=== PATIENT | female | born 1995 | race Caucasian/White ===

== ENCOUNTER 2017-03-25 22:31 | Emergency (ER) ==
[2017-03-25 22:41] VITALS: BP 105/70; TEMP 98; BMI 31.4
--- NOTE | 2017-03-25 23:04 | ED.PDOC ---
General ED Provider: Dr. GREG WHATLEY Chief Complaint: Urinary Problem Stated Complaint: pateint complains of urinary symtoms mostly burining on urination. Denies any back pain or fever. Time Seen by Physician: 22:59 Mode of Arrival: Walk-In Information Source: Patient Exam Limitations: No limitations Nursing and Triage Documentation Reviewed and Agree: Yes Review of Systems - Review Of Systems Constitutional: Reports: No symptoms Eyes: Reports: No symptoms Ears, Nose, Mouth, Throat: Reports: No symptoms Respiratory: Reports: No symptoms Cardiac: Reports: No symptoms GI: Reports: No symptoms : Reports: Dysuria Musculoskeletal: Reports: No symptoms Skin: Reports: No symptoms Neurological: Reports: Anxiety Endocrine: Reports: No symptoms Hematologic/Lymphatic: Reports: No symptoms All Other Systems: Reviewed and Negative Past Medical History - Past Medical History Endocrine: Reports: None Cardiovascular: Reports: None Respiratory: Reports: None Hematological: Reports: None Gastrointestinal: Reports: None Genitourinary: Reports: None Neuro/Psych: Reports: Anxiety, Depression, Bipolar Disorder, Other (Paranoia ) Musculoskeletal: Reports: None Cancer: Reports: None Last Menstrual Period: 2-3 WEEKS AGO - Surgical History General Surgical History: Reports: None - Family History Family History: Reports: None - Social History Smoking Status: Never smoker Hx Substance Use: No Alcohol Screening: None - Immunizations Tetanus Shot up to Date: Yes Physical Exam - Physical Exam Appearance: Well-appearing, Well-nourished Eyes: REBECCA, EOMI, Conjunctiva clear ENT: Ears normal, Nose normal, Oropharynx normal Respiratory: Airway patent, Breath sounds clear, Breath sounds equal, Respirations nonlabored Cardiovascular: RRR, Pulses normal, No rub, No murmur GI/: Soft, Nontender, No masses, Bowel sounds normal, No Organomegaly Musculoskeletal: Normal strength, ROM intact, No edema, No calf tenderness Skin: Warm, Dry, Normal color Neurological: Sensation intact, Motor intact, Cranial nerves intact, Alert, Oriented Psychiatric: Affect appropriate, Mood appropriate Critical Care Note - Critical Care Note Total Time (mins): 0 Course - Course Orders, Labs, Meds: Lab Review 03/25/17 22:50 Urine Color Yellow Urine Clarity Hazy Urine pH 7.0 Ur Specific [place] 1.010 Urine Protein Negative Urine Glucose (UA) Negative Urine Ketones Negative Urine Blood Trace-lysed Urine Nitrite Negative Urine Bilirubin Negative Urine Urobilinogen 0.2 Ur Leukocyte Esterase 2+ Urine Microscopic WBC 20-30 Ur Squamous Epith Cells 10-20 Urine Test Negative Orders Category Date Time Status URINALYSIS C & S IF INDICATED Stat LAB 03/25/17 22:50 Completed URINE CULTURE Routine LAB 03/25/17 22:50 Results URINE Stat LAB 03/25/17 22:50 Completed Acetaminophen [Tylenol] MEDS 03/25/17 23:26 Discontinued 650 mg PO ONCE STA Phenazopyridine HCl [Pyridium] MEDS 03/25/17 23:26 Discontinued 100 mg PO ONCE STA Sulfamethoxazole/Trimethoprim [Bactrim Ds 800/160 mg] MEDS 03/25/17 23:26 Discontinued 1 tab PO ONCE STA Medications Discontinued Medications Generic Name Dose Route Start Last Admin Trade Name Freq PRN Reason Stop Dose Admin Acetaminophen 650 mg 03/25/17 23:26 03/25/17 23:38 Tylenol PO 03/25/17 23:27 650 mg ONCE STA Administration Phenazopyridine HCl 100 mg 03/25/17 23:26 03/25/17 23:39 Pyridium PO 03/25/17 23:27 100 mg ONCE STA Administration Trimethoprim/Sulfamethoxazole 1 tab 03/25/17 23:26 03/25/17 23:39 Bactrim Ds 800/160 Mg PO 03/25/17 23:27 1 tab ONCE STA Administration Vital Signs: Temp Pulse Resp BP Pulse Ox 03/25/17 22:32 98 F 72 18 105/70 97 Departure - Departure Time of Disposition: 23:20 Disposition: HOME SELF-CARE Discharge Problem: Urinary tract infectious disease Instructions: Urinary Tract Infection in Women (ED) Condition: Fair Pt referred to PMD for follow-up: Yes Additional Instructions: Push fluids Take pain medications as prescribed. Follow up with your primary care provider as soon as possible. Prescriptions: Phenazopyridine HCl [Pyridium] 100 mg PO TID PRN #10 tablet PRN Reason: Urinary Burning. Sulfamethoxazole/Trimethoprim [Bactrim Ds Tablet] 1 each PO BID #10 tablet Allergies/Adverse Reactions: Allergies No Known Allergies Allergy (Verified 03/25/17 22:39) Home Medications: Ambulatory Orders Phenazopyridine HCl [Pyridium] 100 mg PO TID PRN #10 tablet 03/25/17 Sulfamethoxazole/Trimethoprim [Bactrim Ds Tablet] 1 each PO BID #10 tablet 03/25 Disposition Discussed With: Patient, Family
[2017-03-25 23:06] LABS: BILIRUBIN,URINE Negative (NEGATIVE); KETONES,URINE Negative (NEGATIVE); LEUKOCYTE ESTERASE ,URINE 2+ (NEGATIVE); NITRITE,URINE Negative (NEGATIVE); PROTEIN,URINE Negative (NEGATIVE); URINE, BLOOD Trace-lysed (NEGATIVE)
[2017-03-25 23:08] LABS: ADD URINE MICROSCOPIC YES
[2017-03-25 23:09] LABS: URINE PREGNANCY INTERNAL QC INTERNAL QC VALID
[2017-03-25] MEDS ORDERED: BACTRIM DS 800/160 MG PO STA (23:26)
[2017-03-25] MEDS ORDERED: PYRIDIUM PO STA (23:26)
[2017-03-25] MEDS ORDERED: TYLENOL PO STA (23:26)
== END 2017-03-25 23:42 | disposition home or self-care (01) ==
LOC: ED 22:31
DX: N39.0 Urinary tract infection, site not specified (principal)
CPT/HCPCS: 81001; 81025; 87086; 99282

== ENCOUNTER 2018-04-23 11:15 | Emergency (ER) ==
[2018-04-23 11:32] VITALS: BMI 31.8
[2018-04-23] MEDS ORDERED: LACTATED RINGERS 1,000 ML IV STA (11:46)
[2018-04-23] MEDS ORDERED: LEVAQUIN 500 MG in PREMIX 100 ML D5W 1 BAG IV STA (12:48)
--- NOTE | 2018-04-23 12:53 | ED.PDOC ---
General ED Provider: Dr. GREG WHATLEY Chief Complaint: Back Pain Stated Complaint: Left flank pain for 2 days with shaking chills. Time Seen by Physician: 12:51 Mode of Arrival: Walk-In Information Source: Patient Nursing and Triage Documentation Reviewed and Agree: Yes Does patient meet sepsis criteria?: Yes If yes, has appropriate treatment been initiated?: No System Inflammatory Response Syndrome: Not Applicable Sepsis Protocol: For patient's 13 years and over: Temp is 96.8 and below OR 101 and greater Pulse >90 BPM Resp >20/minute Acutely Altered Mental Status Are patient's symptoms suggestive of a new infection, such as: -Pneumonia -Skin, Soft Tissue -Endocarditis -UTI -Bone, Joint Infection -Implantable Device -Acute Abdominal Infection -Wound Infection -Meningitis -Blood Stream Catheter Infection -Unknown Complaint Exam - Complaint/Exam Patient Complains of: Reports: Pain Onset/Duration: 1 day Symptoms Are: Still present Timing: Constant Initial Severity: Moderate Current Severity: Moderate Location of Pain: Reports: Left, Flank Character: Reports: Colicky Aggravating: Reports: None Alleviating: Reports: None Associated Signs and Symptoms: Reports: Back pain, Hematuria Ectopic Risk Factors: Reports: None Ovarian Torsion Risk Factors: Reports: None Surgical Obstruction Risk Factors: Reports: None Abdominal Findings: Present: CVA Tenderness Differential Diagnoses: Renal Colic, UTI, Other (pyelonephritis ) Review of Systems - Review Of Systems Constitutional: Reports: No symptoms Eyes: Reports: No symptoms Ears, Nose, Mouth, Throat: Reports: No symptoms Respiratory: Reports: No symptoms Cardiac: Reports: No symptoms GI: Reports: No symptoms : Reports: Dysuria, Frequency, Flank pain Musculoskeletal: Reports: Back pain (Left flank ) Skin: Reports: No symptoms Neurological: Reports: No symptoms Endocrine: Reports: No symptoms Hematologic/Lymphatic: Reports: No symptoms All Other Systems: Reviewed and Negative Past Medical History - Past Medical History Endocrine: Reports: None Cardiovascular: Reports: None Respiratory: Reports: None Hematological: Reports: None Gastrointestinal: Reports: None Genitourinary: Reports: None Neuro/Psych: Reports: Anxiety, Depression, Bipolar Disorder, Other (Paranoia ) Musculoskeletal: Reports: None Cancer: Reports: None Last Menstrual Period: now - Surgical History General Surgical History: Reports: None - Family History Family History: Reports: None - Social History Smoking Status: Never smoker Hx Substance Use: No Alcohol Screening: None Physical Exam - Physical Exam Appearance: Ill-appearing, Well-nourished Ill-appearing: Moderate Pain Distress: Moderate Eyes: REBECCA, EOMI, Conjunctiva clear ENT: Ears normal, Nose normal, Oropharynx normal Neck: Supple Respiratory: Airway patent, Breath sounds clear, Breath sounds equal, Respirations nonlabored Cardiovascular: Pulses normal, No rub, No murmur, Tachycardia GI/: Soft, No masses, Bowel sounds normal, No Organomegaly, Tender (Left upper quadrand mild tenderness ) Musculoskeletal: Normal strength, ROM intact, No edema, No calf tenderness Skin: Warm, Dry, Normal color Neurological: Sensation intact, Motor intact, Cranial nerves intact, Alert, Oriented Psychiatric: Affect appropriate, Mood appropriate Critical Care Note - Critical Care Note Total Time (mins): 0 Course - Course Hematology/Chemistry: 04/23/18 11:45 04/23/18 11:45 Orders, Labs, Meds: Lab Review 04/23/18 04/23/18 04/23/18 11:45 11:45 11:45 WBC 18.90 H RBC 4.11 L Hgb 12.1 Hct 35.4 L MCV 86.1 MCH 29.4 MCHC 34.2 RDW Coeff of [place] 12.2 Plt Count 242 Immature Gran % (Auto) 0.4 Neut % (Auto) 89.0 Lymph % (Auto) 5.9 L [place] % (Auto) 3.8 Eos % (Auto) 0.7 Baso % (Auto) 0.2 Immature Gran # (Auto) 0.1 Neut # (Auto) 16.8 H Lymph # (Auto) 1.1 [place] # (Auto) 0.7 Eos # (Auto) 0.1 Baso # (Auto) 0.0 Sodium 138 Potassium 3.6 Chloride 107 Carbon Dioxide 21 Anion Gap 13.6 BUN 11 Creatinine 0.72 Estimated GFR (MDRD) 101.00 BUN/Creatinine Ratio 15.27 Glucose 102 Lactic Acid 5.7 Calcium 9.1 Total Bilirubin 1.0 AST 18 ALT 24 Alkaline Phosphatase 65 Total Protein 7.5 Albumin 3.7 Globulin 3.8 Albumin/Globulin Ratio 0.97 Procalcitonin Urine Color Urine Clarity Urine pH Ur Specific [place] Urine Protein Urine Glucose (UA) Urine Ketones Urine Blood Urine Nitrite Urine Bilirubin Urine Urobilinogen Ur Leukocyte Esterase Urine Microscopic RBC Urine Microscopic WBC Ur Squamous Epith Cells Urine Bacteria Urine Test 04/23/18 04/23/18 04/23/18 11:45 11:50 11:50 WBC RBC Hgb Hct MCV MCH MCHC RDW Coeff of [place] Plt Count Immature Gran % (Auto) Neut % (Auto) Lymph % (Auto) [place] % (Auto) Eos % (Auto) Baso % (Auto) Immature Gran # (Auto) Neut # (Auto) Lymph # (Auto) [place] # (Auto) Eos # (Auto) Baso # (Auto) Sodium Potassium Chloride Carbon Dioxide Anion Gap BUN Creatinine Estimated GFR (MDRD) BUN/Creatinine Ratio Glucose Lactic Acid Calcium Total Bilirubin AST ALT Alkaline Phosphatase Total Protein Albumin Globulin Albumin/Globulin Ratio Procalcitonin 0.21 Urine Color Yellow Urine Clarity Cloudy Urine pH 5.5 Ur Specific [place] 1.020 Urine Protein 2+ Urine Glucose (UA) Negative Urine Ketones Negative Urine Blood 3+ Urine Nitrite Positive Urine Bilirubin Negative Urine Urobilinogen 0.2 Ur Leukocyte Esterase 2+ Urine Microscopic RBC Tntc Urine Microscopic WBC 20-30 Ur Squamous Epith Cells 5-10 Urine Bacteria 2+ Urine Test Negative Orders Category Date Time Status ED IV/MEDIPORT/POWERPORT .ONCE EMERGENCY 04/23/18 11:44 Active BLOOD CULTURE (ED ONLY) Stat LAB 04/23/18 11:45 Results CBC W/ AUTO DIFF Stat LAB 04/23/18 11:45 Completed COMPREHENSIVE METABOLIC PANEL Stat LAB 04/23/18 11:45 Completed LACTIC ACID Stat LAB 04/23/18 11:45 Completed PROCALCITONIN Stat LAB 04/23/18 11:45 Completed URINALYSIS C & S IF INDICATED Stat LAB 04/23/18 11:50 Completed URINE CULTURE Stat LAB 04/23/18 11:50 Completed URINE Stat LAB 04/23/18 11:50 Completed 0.9 % Sodium Chloride [Saline Flush] MEDS 04/23/18 11:44 Discontinued 1 syr IVF PRN PRN Levofloxacin/D5w [Levaquin] 100 ml MEDS 04/23/18 13:23 Discontinued IV .STK-MED Levofloxacin/D5w [Levaquin] 500 mg MEDS 04/23/18 12:48 Discontinued Premix 100 ml D5w 1 bag IV ONCE Ringers Lactated Solution [Lactated Ringers] 1,000 ml MEDS 04/23/18 11:[address] ABD/PEL WO RENAL STONE PROT Stat RADS 04/23/18 12:21 Completed Medications Discontinued Medications Generic Name Dose Route Start Last Admin Trade Name Freq PRN Reason Stop Dose Admin Lactated Ringer's 1,000 mls @ 1,000 mls/hr 04/23/18 11:46 04/23/18 12:13 Lactated Ringers IV 04/23/18 12:45 1,000 mls/hr BOLUS STA Administration Levofloxacin/Dextrose 500 mg/ 100 mls @ 100 mls/hr 04/23/18 12:48 04/23/18 12 :56 Dextrose IV 04/23/18 13:47 100 mls/hr ONCE STA Administration Sodium Chloride 1 syr 04/23/18 11:44 04/23/18 12:13 Saline Flush IVF 1 syr PRN PRN Administration To flush IV Vital Signs: Temp Pulse Resp BP Pulse Ox 04/23/18 13:41 99.3 F 77 16 124/80 98 04/23/18 11:22 102.2 F H 120 H 16 109/69 95 Departure - Departure Time of Disposition: 01:30 Disposition: HOME SELF-CARE Discharge Problem: Pyelonephritis Instructions: Kidney Infection (ED), Flank Pain (ED) Condition: Stable Pt referred to PMD for follow-up: Yes IPMP verified?: No Additional Instructions: Push fluids Follow up with Your PCP in 3 days Return if worse or cannot keep the medications down. Prescriptions: Levofloxacin [Levaquin] 500 mg PO DAILY #10 tablet Allergies/Adverse Reactions: Allergies No Known Allergies Allergy (Verified 04/23/18 11:26) Home Medications: Ambulatory Orders Levofloxacin [Levaquin] 500 mg PO DAILY #10 tablet 04/23/18 Disposition Discussed With: Patient, Family
--- NOTE | 2018-04-23 13:03 | CT ---
EXAM: CT scan of the abdomen and pelvis without contrast HISTORY: ATT TECHNIQUE: Helical imaging of the abdomen pelvis was performed without contrast. 3 mm thin axial im ages and coronal and sagittal reconstructions were provided for interpretation. Comparison 04/24/2008. FINDINGS: The liver, spleen, pancreas, adrenal glands and kidneys appear normal. The proximal urete rs are normal size. Inflammatory changes are suspected along the proximal left ureter. This is seen on axial image number 64. The small and large bowel loops caliber. There is no free air. The appe ndix appears normal. No retroperitoneal abnormalities are seen. The helical images obtained through the pelvis demonstrate a normal appearance of the rectum, urinary bladder. There is no free fluid seen within the pelvis. Lung bases are clear. No lytic or blastic lesions are seen within the osseous structures. IMPRESSION: Inflammatory changes are seen surrounding the proximal left ureter and this may represen t an ascending urinary tract infection on the left. Left pyelonephritis cannot be excluded. There is no bowel obstruction. There is no ureteral obstruction.
[2018-04-23] MEDS ORDERED: LEVAQUIN 100 ML IV ONE (13:23)
[2018-04-23 13:42] VITALS: BP 124/80; TEMP 99.3
== END 2018-04-23 14:16 | disposition home or self-care (01) ==
LOC: ED 11:15
DX: N12 Tubulo-interstitial nephritis, not specified as acute or chronic (principal)
CPT/HCPCS: 36415; 74176; 80053; 81001; 81025; 83605; 84145; 85025; 87040; 87086; 87186; 96365; 99283

== ENCOUNTER 2019-04-19 16:46 | Emergency (ER) ==
[2019-04-19 16:49] VITALS: BP 121/84; TEMP 98.8; BMI 36.2
--- NOTE | 2019-04-19 17:24 | ED.PDOC ---
General ED Provider: Dr. ARTEM GUY Chief Complaint: Knee Pain/Injury Stated Complaint: left knee pain Time Seen by Physician: 17:00 Mode of Arrival: Walk-In Information Source: Patient Exam Limitations: No limitations Nursing and Triage Documentation Reviewed and Agree: Yes Does patient meet sepsis criteria?: No System Inflammatory Response Syndrome: Not Applicable Sepsis Protocol: For patient's 13 years and over: Temp is 96.8 and below OR 101 and greater Pulse >90 BPM Resp >20/minute Acutely Altered Mental Status Are patient's symptoms suggestive of a new infection, such as: -Pneumonia -Skin, Soft Tissue -Endocarditis -UTI -Bone, Joint Infection -Implantable Device -Acute Abdominal Infection -Wound Infection -Meningitis -Blood Stream Catheter Infection -Unknown Musculoskeletal Complaint Exam - Knee Pain Complaint/Exam Mechanism of Injury: Reports: No known trauma Onset/Duration: 2 days Symptoms Are: Still present Onset of Pain: Reports: Days Initial Severity: Mild Current Severity: Mild Location: Reports: Discrete Character: Reports: Aching Alleviating: Reports: Rest Aggravating: Reports: Movement, Weight bearing, Prolonged standing, Stairs Associated Signs and Symptoms: Denies: Swelling, Redness, Bruising, Fever, Weakness, Numbness, Tingling Able to Bear Weight: Yes Septic Arthritis Risk Factors: Reports: None Gout Risk Factors: Reports: None Knee Findings: Absent: Swelling, Ecchymosis, Abnormal contour, Rotation, Ligamentous instability, Laceration, Erythema, Warmth, Blisters, Other joint pain, Foreign body, Limited range of motion Tenderness: Present: Pre-patellar Lizzette Test Positive: No Chely Test Positive: No Differential Diagnoses: Closed Fracture, Internal Derangement, Sprain, Strain Review of Systems - Review Of Systems Constitutional: Reports: No symptoms Eyes: Reports: No symptoms Ears, Nose, Mouth, Throat: Reports: No symptoms Respiratory: Reports: No symptoms Cardiac: Reports: No symptoms GI: Reports: No symptoms : Reports: No symptoms Musculoskeletal: Reports: Joint pain (left knee ) Skin: Reports: No symptoms Neurological: Reports: No symptoms Endocrine: Reports: No symptoms Hematologic/Lymphatic: Reports: No symptoms All Other Systems: Reviewed and Negative Past Medical History - Past Medical History Previously Healthy: Yes Endocrine: Reports: None Cardiovascular: Reports: None Respiratory: Reports: None Hematological: Reports: None Gastrointestinal: Reports: None Genitourinary: Reports: None Neuro/Psych: Reports: Anxiety, Depression, Bipolar Disorder, Other (Paranoia ) Musculoskeletal: Reports: None Cancer: Reports: None Last Menstrual Period: last month - Surgical History General Surgical History: Reports: None - Family History Family History: Reports: None - Social History Smoking Status: Never smoker Hx Substance Use: No Alcohol Screening: None Physical Exam - Physical Exam Appearance: Well-appearing, No pain distress, Well-nourished Eyes: REBECCA, EOMI, Conjunctiva clear ENT: Ears normal, Nose normal, Oropharynx normal Respiratory: Airway patent, Breath sounds clear, Breath sounds equal, Respirations nonlabored Cardiovascular: RRR, Pulses normal, No rub, No murmur GI/: Soft, Nontender, No masses, Bowel sounds normal, No Organomegaly Musculoskeletal: Normal strength, ROM intact, No edema, No calf tenderness Skin: Warm, Dry, Normal color Neurological: Sensation intact, Motor intact, Reflexes intact, Cranial nerves intact, Alert, Oriented Psychiatric: Affect appropriate, Mood appropriate Critical Care Note - Critical Care Note Total Time (mins): 0 Course - Course Orders, Labs, Meds: Orders Category Date Time Status URINE Stat LAB 04/19/19 17:19 Received KNEE, LEFT 4 VIEWS Stat RADS 04/19/19 17:01 Ordered Vital Signs: Temp Pulse Resp BP Pulse Ox 04/19/19 16:47 98.8 F 78 20 121/84 97 Departure - Departure Time of Disposition: 18:00 Disposition: HOME SELF-CARE Discharge Problem: Knee pain Instructions: Knee Pain (ED) Condition: Good Pt referred to PMD for follow-up: Yes IPMP verified?: No Additional Instructions: Please call your Family Physician as soon as possible to schedule a follow-up appointment. Prescriptions: Hydrocodone Bit/Acetaminophen [Welcome 10-325] 1 each PO Q6HR #10 tablet Allergies/Adverse Reactions: Allergies No Known Allergies Allergy (Verified 04/19/19 16:49) Home Medications: Ambulatory Orders Hydrocodone Bit/Acetaminophen [Welcome 10-325] 1 each PO Q6HR #10 tablet 04/19/19 Disposition Discussed With: Patient
[2019-04-19 17:25] LABS: URINE PREGNANCY TEST NEGATIVE (NEGATIVE)
--- NOTE | 2019-04-19 18:04 | DI ---
Exam: Left knee three-view History: Left knee pain without trauma Findings / impression: No bony or articular abnormality of the left knee. Small heterotopic calcifi cations projecting anterolateral to the distal femur possibly within a tendon group or suprapatellar fat.
== END 2019-04-19 18:13 | disposition home or self-care (01) ==
LOC: ED 16:46
DX: M25.562 Pain in left knee (principal)
CPT/HCPCS: 81025; 99283